=== PATIENT | female | born 1990 | race Caucasian/White ===

== ENCOUNTER 2018-05-17 08:48 | Emergency (ER) | payer OTHER ==
[~2018-05-17] VITALS: Ht 162.5 cm; Wt 125.6 kg
[2018-05-17 08:48] VITALS: BP 152/103
[~2018-05-17 08:48] MED LIST: AMOXICILLIN500 MG PO; AMOXIL500 M1 PO; AUGMENTIN 875875 MG PO; BACTRIM DS 8001 TA1 PO; BIRTH CONTROL1 EAC1 PO; BUSPAR5 MG PO; CATAPRES0.1 MG PO; CYCLOBENZAPRINE5 M3 PO; DOXYCYCLINE100 M3 PO; FLAGYL500 MG PO; HYDR25T PO; HYDROCODONE BIT1 T11 PO; HYDROXYZINE50 MG PO; IBU-8800 MG PO; K-TAB10 MEQ PO; KEFLEX500 MG PO; MACROBID100 M1 PO; MOTRIN800 MG PO; Motrin,Rufen800 MG PO; NKHM PO; NORVASC5 MG PO; PHENERGAN25 MG RC; POTASSIUM20 MEQ PO; PROZAC20 MG PO; ZITHROMAX Z PA250 MG PO; ZOFRAN ODT4 MG SL; ZOFRAN4 MG PO; ZOLOFT100 MG PO; Zofran4 MG PO
[2018-05-17] MEDS ORDERED: Motrin,Rufen800 MG PO (09:25)
[2018-05-17] MEDS ORDERED: AMOXICILLIN875 MG PO (09:25)
[2018-05-17] MEDS ORDERED: NORCO 5-325 TA1 EACH PO (09:26)
== END 2018-05-17 09:45 | disposition home or self-care (01) ==
LOC: ED 08:48
DX: K08.89 Other specified disorders of teeth and supporting structures (principal); Z88.1 Allergy status to other antibiotic agents; Z79.899 Other long term (current) drug therapy; Z90.49 Acquired absence of other specified parts of digestive tract

== ENCOUNTER 2018-06-10 17:03 | Inpatient (IN) | payer OTHER ==
[~2018-06-10] VITALS: Ht 162.5 cm; Wt 132.1 kg
--- NOTE | ~2018-06-10 | PR ---
[place], [place] PROGRESS NOTE [id number] UN[facility] #: [id number] ROOM: 427 DOCTOR: KRISTA FUENTES MD BIRTHDATE: [birth year] DOS: 06/12/2018 SUBJECTIVE: The patient is feeling better. She still has significant flank pains and nausea, but slightly better than yesterday. OBJECTIVE: VITAL SIGNS: Blood pressure 147/91, heart rate 87 beats per minute, breathing 20 times per minute, temperature 98 degrees Fahrenheit. GENERAL APPEARANCE: The patient is alert and oriented x 3, in no visible distress. Obesity. HEENT AND NECK: Exam within normal limits. CARDIOVASCULAR SYSTEM: Heart rate is regular in rate and rhythm. S1 and S2 normally audible. LUNGS: Clear to auscultation. ABDOMEN: Soft, nontender. No obvious organomegaly. Bowel sounds are present. EXTREMITIES: Without significant cyanosis or edema. MUSCULOSKELETAL: Bilateral flank tenderness. IMPRESSION: 1. The patient with pyelonephritis, bilateral flank pains and leukocytosis with nausea, all improving with treatment. The patient's urinary symptoms also improving and Infectious Disease specialists are following her. 2. HIV testing was negative. 3. Pyelonephritis with urine cultures growing Escherichia coli, sensitive to Rocephin. 4. Vomiting has resolved, but the patient still has significant nausea and being treated with IV Zofran. 5. Dehydration and hypovolemia treated with hydration with normal saline. Serum electrolytes are being monitored. KRISTA FUENTES MD CM:PNTRANS 1001 1 KRISTA FUENTES MD 06/13/18211 interface
--- NOTE | ~2018-06-10 | EKG ---
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
--- NOTE | ~2018-06-10 | WRIGHTHP ---
[place], [place] PATIENT HISTORY AND PHYSICAL EXAM NAME: ANNA ANDERSON [facility] #: [id number] UNIT #: [id number] ROOM: 427 DOCTOR: KRISTA FUENTES MD BIRTHDATE: [birth year] DOS: 06/10/2018 HISTORY OF PRESENT ILLNESS: The patient is a 27-year-old female who presented to the Emergency Department with complaints of bilateral lower back and flank pains with urinary urgency and dysuria. The patient was in severe pain and hyperventilating and crying in the ER with numbness in both hands. The patient was suspected to have sepsis and acute pyelonephritis. Urine and blood cultures were sent and she was admitted to a monitored bed for close monitoring. The patient has leukocytosis with white cell count of 17,000. After admission, the patient was given oral azithromycin, following which she started vomiting. The patient had significant nausea since yesterday. No dizziness or fainting episode. No chest pains or shortness of breath, no other GI or urinary symptoms. SYSTEMS REVIEW: RESPIRATORY: No increasing shortness of breath. GASTROINTESTINAL: The patient has nausea and vomiting. CARDIOVASCULAR SYSTEM: No chest pains or palpitations. FAMILY HISTORY: Noncontributory. HOME MEDICATIONS: Apparently, the patient is not taking any medications at home. PHYSICAL EXAMINATION: GENERAL: Alert and oriented x 3, in no visible distress. VITAL SIGNS: Blood pressure 127/76, heart rate of 73 beats per minute, breathing 20 times per minute, afebrile with the patient's heart rate at count of 208 beats per minute. Morbid obesity with BMI of 50. HEENT AND NECK: Extraocular movements are intact. Sclerae are anicteric. Oral mucosa is moist and clean. No obvious facial weakness. Neck is supple without any lymphadenopathy. No thyromegaly. No JVD. No carotid arterial bruits. LUNGS: Clear to auscultation. No wheezing. No rhonchi. CARDIOVASCULAR SYSTEM: Heart rate is regular in rate and rhythm. S1 and S2 normally audible. No significant murmur or any other abnormal cardiac sounds. ABDOMEN: Bilateral flank tenderness, otherwise abdominal exam is benign. Soft. No obvious organomegaly. Bowel sounds are present. No obvious herniation. EXTREMITIES: Without significant cyanosis or edema. Warm to touch. CENTRAL NERVOUS SYSTEM: Alert and oriented x 3. Cranial nerves II-XII are intact. Speech is normal. The patient is able to move all extremities. Normal muscle strength. Deep tendon reflexes are equal on both sides. Plantars were downgoing. IMPRESSION: 1. The patient with pyelonephritis, leukocytosis with white cell count of 17,000 with bilateral flank pains and nausea and vomiting is being treated with IV Rocephin and the patient was given azithromycin by Infectious Disease specialist. Blood and urine cultures are still pending. We are monitoring white cell counts, which are improving. 2. Severe nausea and vomiting, uncontrolled by IV Zofran and I am giving her IV Phenergan to control her symptoms. [place], [place] PATIENT HISTORY AND PHYSICAL EXAM [facility]: [id number] #: [id number] ROOM: [facility] DOCTOR: KRISTA FUENTES MD BIRTHDATE: [birth year] 3. Recurrent nausea, vomiting, and dehydration, hypovolemia to be treated with infusion of normal saline. 4. Significant flank pains, being treated with ibuprofen and Tylenol combination. The patient was given IV Toradol in the Emergency Department. KRISTA FUENTES MD CM:HISPHYS:PATIENT HISTORY AND PHYSICAL EXAMINATION 36 16 KRISTA FUENTES MD 06/11/181816 interface
--- NOTE | ~2018-06-10 | DS ---
[place], [place] DISCHARGE SUMMARY NAME: ANNA ANDERSON UNIT #: [id number] ROOM: 427 DOCTOR: KRISTA FUENTES MD BIRTHDATE: [birth year] DOS: 06/13/2018 DISCHARGE DIAGNOSES: 1. Pyelonephritis with urine cultures growing Escherichia coli. 2. Sepsis, vomiting, bilateral flank pains, dehydration, hypovolemia, tachycardia up to 122 beats per minute. Leukocytosis with white cell count of 17,000. HOSPITAL COURSE: The patient presented to the Emergency Department with complaints of bilateral flank pains, lower abdominal pains, urinary symptoms, hyperventilating, crying with numbness in both hands and lower back pains. The patient was found to have leukocytosis and later on urine cultures grew E. coli. The patient also had recurrent nausea, vomiting along with the abdominal pains. The patient was treated with ceftriaxone intravenously and she is improving. The patient was seen by Infectious Disease specialist and recommended ciprofloxacin as an outpatient for 1 week, bilateral significant lower back pain and flank pains from pyelonephritis, improved with treatment with Tylenol and ibuprofen combination. Recurrent nausea and vomiting, treated with Zofran as needed and has improved. The patient will be seen at the office by me on Sunday and she is being discharged to home on ciprofloxacin, ibuprofen and Tylenol as needed along with Zofran for nausea and vomiting. LABORATORY DATA: Urine culture growing E. coli as mentioned above sensitive to ciprofloxacin. Blood cultures were negative. Normal serum electrolytes. White cell count of 17,000 and has returned to normal. It is 9800 today. DISCHARGE MANAGEMENT: Protonix 40 mg twice a day for a month; ibuprofen 800 mg 3 times a day for 10 days as needed; Zofran 8 mg every 6 hours as needed sublingual for nausea, vomiting; ciprofloxacin 500 mg twice a day for a week, then to be stopped. [place], [place] DISCHARGE SUMMARY NAME: ANNA ANDERSON UNIT #: [id number] ROOM: 427 DOCTOR: KRISTA FUENTES MD BIRTHDATE: [birth year] KRISTA FUENTES MD CM:MARIAH 1946 2 KRISTA FUENTES MD 06/14/18702 interface
[~2018-06-10 17:03] MED LIST changes: +AMOXICILLIN875 MG PO; +NORCO 5-325 TA1 EACH PO
[2018-06-10 17:05] VITALS: BP 156/96
[2018-06-10 17:28] LABS: BASO % 0.2 % (0.0-1.0); EOS # 0.2 10*3/uL (0.0-0.4); EOS % 0.9 % (1.0-4.0); HEMATOCRIT 38.9 % (37.0-47.0); LYMPH # 2.8 10*3/uL (1.3-4.4); LYMPH % 16.7 % (27.0-41.0); MEAN CELL VOLUME 81.2 fl (81.0-99.0); MEAN CORPUSCULAR HGB 27.1 pg (27.0-31.0); MEAN CORPUSCULAR HGB CONC 33.4 g/dl (33.0-37.0); MEAN PLATELET VOLUME 9.8 fl (9.6-12.3); MONO # 0.9 10*3/uL (0.1-1.0); NEUT # 13.1 10*3/uL (2.3-7.9); NEUT % 76.8 % (47.0-73.0); PLATELET COUNT AUTOMATED 390 10*3/uL (130-400); RED BLOOD COUNT 4.79 10*6/uL (4.10-5.10); RED CELL DISTRI WIDTH 13.6 % (0-14.5)
--- NOTE | 2018-06-10 17:46 | NUR ---
PAIN NEARLY COMPLETELY RELIEVED BY TORADOL INJECTION.
[2018-06-10 17:48] LABS: BILIRUBIN NEGATIVE (NEGATIVE); BLOOD 3+ (NEGATIVE); CLARITY CLOUDY (CLEAR); COLOR YELLOW (YELLOW); GLUCOSE NEGATIVE (NEGATIVE); KETONE NEGATIVE (NEGATIVE); LEUKO ESTERASE 3+ (NEGATIVE); NITRITE POSITIVE (NEGATIVE); SPECIFIC GRAVITY <= 1.005 (1.005-1.030); UROBILINOGEN 0.2 E.U./dl (0.2-1.0)
[2018-06-10 17:51] LABS: ALBUMIN 3.4 gm/dl (3.1-4.5); ALKALINE PHOSPHATASE 81 U/L (45-117); BUN 11 mg/dl (7-24); CHLORIDE 107 mmol/L (98-107); CREATININE 0.74 mg/dL (0.55-1.02); LIPASE 71 U/L (73-393); POTASSIUM 3.9 mmol/L (3.5-5.1); SGOT/AST 16 IU/L (3-35); SGPT/ALT 28 U/L (12-78); SODIUM 138 mmol/L (136-145); TOTAL PROTEIN 7.9 gm/dL (6.4-8.2)
[2018-06-10 18:02] LABS: WBC TNTC wbc/hpf (0-5)
[2018-06-10 18:03] LABS: BACTERIA 3+
[2018-06-10 18:55] VITALS: BP 131/65
--- NOTE | 2018-06-10 18:55 | NUR ---
PAIN RESOLVED. ALL TESTS RETURNED. LAST OF SALINE INFUSING. FAMILY AT BEDSIDE.
--- NOTE | 2018-06-10 19:14 | NUR ---
CONT PATIENT CARE. PATIENT IS RESTING IN BED WITH NO DISTRESS. PATIENT STATES PAIN FEELS MUCH BETTER THEN BEFORE. VITALS STILL WITHIN NORMAL LIMITS.
[2018-06-10 19:15] VITALS: BP 128/69
[2018-06-10 20:05] VITALS: BP 132/84
--- NOTE | 2018-06-10 20:05 | NUR ---
A 27, admitted to , under the services of Dr. ALFREDO BUSTOS,KRISTA Burton with a diagnosis of UTI,SEPSIS. Chief complaint is KIDNEY STONES. Patient arrived via stretcher from ER. Monitor applied. Initial assessment completed. Vital signs taken and recorded. DR. ALFREDO BUSTOS,KRISTA Burton notified of admission to the unit. Orders received. See assessment for past medical history, medications and allergies. Patient and/or family oriented to unit. [facility] visitation policy reviewed. Clothing/patient valuable form completed. KEAGAN LORENZANA
--- NOTE | 2018-06-10 20:45 | NUR ---
DR FUENTES CALLED FOR ADMISSION ORDERS. NEW ORDERS RECEIVED- SEE ORDERS.
--- NOTE | 2018-06-10 22:00 | NUR ---
PATIENT REQUESTING PAIN MEDICATION FOR BILATER FLANK AND LOWER ABDOMINAL PAIN RATED 8/10 ON 0/10 SCALE. DIALUDID ADMINISTERED PRESCRIBED. WILL MONITOR FOR EFFECTIVENESS.
--- NOTE | 2018-06-10 23:00 | NUR ---
PATIENT STATES THAT PAIN IS 3/10 AFTER ADMINISTRATION OF DILAUDID. CONTINUE TO MONITOR.
--- NOTE | 2018-06-11 02:35 | NUR ---
24 HR chart check completed.
--- NOTE | 2018-06-11 03:10 | NUR ---
PATIENT RESTING WITH EYES CLOSED AT THIS TIME. RESPIRATIONS EASY. NO DISTRESS NOTED. CALL HATFIELD WITHIN REACH. MONITOR FOR EFFECTIVENESS.
--- NOTE | 2018-06-11 03:12 | NUR ---
PATIENT RESTING WITH EYES CLOSED. RESPIRATIONS EASY. NO DISTRESS NOTED AT THIS TIME. CALL H[facility]FIELD WITHIN REACH. CONTINUE TO MONITOR.
--- NOTE | 2018-06-11 04:25 | NUR ---
PATIENT REQUESTING MEDICATION FOR NAUSEA AND PAIN- BILATERAL FLANK AND LOWER ABDOMINAL. ZOFRAN AND DIALUDID ADMINISTERED PRESCRIBED. WILL MONITOR FOR EFFECTIVENESS.
[2018-06-11 06:28] LABS: BASO % 0.3 % (0.0-1.0); EOS # 0.2 10*3/uL (0.0-0.4); EOS % 1.4 % (1.0-4.0); HEMATOCRIT 37.6 % (37.0-47.0); LYMPH # 2.6 10*3/uL (1.3-4.4); LYMPH % 23.5 % (27.0-41.0); MEAN CORPUSCULAR HGB 27.1 pg (27.0-31.0); MEAN CORPUSCULAR HGB CONC 31.9 g/dl (33.0-37.0); MEAN PLATELET VOLUME 10.4 fl (9.6-12.3); MONO # 0.7 10*3/uL (0.1-1.0); MONO % 5.9 % (3.0-9.0); NEUT # 7.6 10*3/uL (2.3-7.9); NEUT % 68.5 % (47.0-73.0); PLATELET COUNT AUTOMATED 347 10*3/uL (130-400); RED BLOOD COUNT 4.43 10*6/uL (4.10-5.10); RED CELL DISTRI WIDTH 13.7 % (0-14.5); WHITE BLOOD COUNT 11.1 10*3/uL (4.8-10.8)
--- NOTE | 2018-06-11 06:35 | NUR ---
[facility] CALLED TO ANSWERING SERVICE.
[2018-06-11 06:36] LABS: BUN 9 mg/dl (7-24); CHLORIDE 108 mmol/L (98-107); CREATININE 0.57 mg/dL (0.55-1.02); POTASSIUM 3.8 mmol/L (3.5-5.1); SODIUM 140 mmol/L (136-145)
[2018-06-11 06:38] LABS: MEAN CELL VOLUME 84.9 fl (81.0-99.0)
[2018-06-11 08:00] VITALS: BP 146/74
--- NOTE | 2018-06-11 09:00 | NUR ---
Joint Creaser in to talk to patient. Patient states lives at home with her 3 children and family checking in on her. There are 21 steps in the home. Physician: Dr. Gonzales Rhodes [facility]acy: [facility] Home health services: none Patient's level of ADLs: INDEPENDENT Patient has working utilities: yes DME: none Follow-up physician's appointment after d/c: she prefers to make her own follow up appt after discharge Does patient want to access PORTAL?: no Discharge plan discussed with patient. She lives at home with her 3 children and her family checking in on her. She is independent in her ADLs and ambulation. Discussed home health care services and she denies any home needs at this time. When medically stable she will be discharged to home. DAGMAR GARCIA
--- NOTE | 2018-06-11 11:47 | NUR ---
MEDICATED PT PER PRN ORDER WITH DILAUDID FOR C/O BILATERAL LOWER BACK AND FLANK PAIN THAT RATES 8/10 ON PAIN SCALE.
[2018-06-11 12:00] VITALS: BP 145/92
--- NOTE | 2018-06-11 12:20 | NUR ---
PT STATES BETTER RELIEF OF PAIN WITH EARLIER DILAUDID.
--- NOTE | 2018-06-11 15:19 | NUR ---
PO ZITHROMAX GIVEN PER ORDER. CONSENT FOR HIV TESTING SIGNED BY PT.
[2018-06-11 16:00] VITALS: BP 127/76
--- NOTE | 2018-06-11 16:08 | NUR ---
MEDICATED PT PER PRN ORDER WITH ZOFRAN FOR C/O NAUSEA.
--- NOTE | 2018-06-11 16:58 | NUR ---
PT VOMITING AFTER IV ZOFRAN. WILL NOTIFY DR FUENTES.
--- NOTE | 2018-06-11 18:07 | NUR ---
MEDICATED PT PER PRN ORDER WITH DILAUDID FOR C/O LOWER BACK PAIN THAT RATES 10/10 ON PAIN SCALE AND MEDICATED PT PER 1X ORDER WITH PHENERGAN FOR PT'S CONTINUED NAUSEA EVEN AFTER IV ZOFRAN. DR FUENTES IN TO SEE PT EARLIER AND ORDERED THE PHENERGAN.
--- NOTE | 2018-06-11 19:00 | NUR ---
PT STATES RELIEF OF PAIN AND NUSEA WITH EARLIER MEDS.
[2018-06-11 20:00] VITALS: BP 111/59
--- NOTE | 2018-06-11 20:40 | NUR ---
24 HR CHART CHECK COMPLETE.
--- NOTE | 2018-06-11 21:40 | NUR ---
PT ASLEEP. REPORT RECIEVED FROM SARAH LUNA. NO S/S OF DISTRESS NOTED AT THIS TIME. WILL CONTINUE TO MONITOR.
[2018-06-12] VITALS: BP 143/101
[2018-06-12 06:13] LABS: HEPATITIS B SURFACE AG Negative (Negative); HEPATITIS C VIRUS ANTIBODY <0.1 s/co (0.0-0.9)
[2018-06-12 06:24] LABS: BASO % 0.3 % (0.0-1.0); EOS # 0.2 10*3/uL (0.0-0.4); EOS % 1.8 % (1.0-4.0); HEMATOCRIT 38.3 % (37.0-47.0); HEMOGLOBIN 11.8 g/dl (12.0-16.0); LYMPH # 2.6 10*3/uL (1.3-4.4); LYMPH % 27.7 % (27.0-41.0); MEAN CELL VOLUME 85.3 fl (81.0-99.0); MEAN CORPUSCULAR HGB 26.3 pg (27.0-31.0); MEAN CORPUSCULAR HGB CONC 30.8 g/dl (33.0-37.0); MEAN PLATELET VOLUME 10.1 fl (9.6-12.3); MONO # 0.5 10*3/uL (0.1-1.0); MONO % 5.2 % (3.0-9.0); NEUT # 6.1 10*3/uL (2.3-7.9); NEUT % 64.7 % (47.0-73.0); PLATELET COUNT AUTOMATED 334 10*3/uL (130-400); RED BLOOD COUNT 4.49 10*6/uL (4.10-5.10); RED CELL DISTRI WIDTH 13.6 % (0-14.5); WHITE BLOOD COUNT 9.5 10*3/uL (4.8-10.8)
[2018-06-12 06:37] LABS: BUN 8 mg/dl (7-24); CHLORIDE 107 mmol/L (98-107); CREATININE 0.61 mg/dL (0.55-1.02); POTASSIUM 3.9 mmol/L (3.5-5.1); SODIUM 140 mmol/L (136-145)
--- NOTE | 2018-06-12 07:54 | NUR ---
MEDICATED WITH IV DILAUDID ORDERED PER PT REQUEST FOR C/O BILAT FLANK PAIN RATED 8/10. ZOFRAN GIVEN AT 0752 FOR NAUSEA PREVENTION D/T DECREASED APPETITE.
[2018-06-12 08:00] VITALS: BP 147/91
--- NOTE | 2018-06-12 08:20 | NUR ---
24 HR chart check completed.
--- NOTE | 2018-06-12 09:00 | NUR ---
Gaming Manager in to see patient. No new needs or request at this time. She denies any home needs. When medically stable she will be discharged to home.
--- NOTE | 2018-06-12 11:00 | NUR ---
MEDICATIONS EFFECTIVE.
[2018-06-12 12:00] VITALS: BP 150/96
--- NOTE | 2018-06-12 15:42 | NUR ---
MEDICATED WITH IV ZOFRAN ORDERED PER PT REQUEST FOR C/O NAUSEA. AT 1544 MEDICATED WITH IV DILAUDID ORDERED PER PT REQUEST FOR C/O PAIN TO BILAT FLANKS RATED 10/10.
[2018-06-12 16:00] VITALS: BP 141/79
--- NOTE | 2018-06-12 17:00 | NUR ---
MEDICATIONS EFFECTIVE FOR NAUSEA/PAIN.
[2018-06-12 20:00] VITALS: BP 140/78
--- NOTE | 2018-06-12 23:22 | NUR ---
PATIENT MEDICATED PER REQUEST WITH PRN DILUADID. PATIENT C/O BACK PAIN. RATES 09/16. WILL CHECK EFFECTIVENESS.
[2018-06-13] VITALS: BP 130/79
[2018-06-13 06:11] LABS: BASO % 0.1 % (0.0-1.0); EOS # 0.2 10*3/uL (0.0-0.4); EOS % 2.1 % (1.0-4.0); HEMATOCRIT 35.5 % (37.0-47.0); HEMOGLOBIN 11.6 g/dl (12.0-16.0); LYMPH # 2.2 10*3/uL (1.3-4.4); MEAN CELL VOLUME 83.5 fl (81.0-99.0); MEAN CORPUSCULAR HGB 27.3 pg (27.0-31.0); MEAN CORPUSCULAR HGB CONC 32.7 g/dl (33.0-37.0); MEAN PLATELET VOLUME 10.1 fl (9.6-12.3); MONO # 0.5 10*3/uL (0.1-1.0); MONO % 5.5 % (3.0-9.0); NEUT # 6.9 10*3/uL (2.3-7.9); PLATELET COUNT AUTOMATED 358 10*3/uL (130-400); RED BLOOD COUNT 4.25 10*6/uL (4.10-5.10); RED CELL DISTRI WIDTH 13.6 % (0-14.5); WHITE BLOOD COUNT 9.8 10*3/uL (4.8-10.8)
[2018-06-13 06:38] LABS: BUN 10 mg/dl (7-24); CHLORIDE 108 mmol/L (98-107); CREATININE 0.58 mg/dL (0.55-1.02); POTASSIUM 3.9 mmol/L (3.5-5.1); SODIUM 140 mmol/L (136-145)
--- NOTE | 2018-06-13 07:30 | NUR ---
Patient resting quietly with no c/o discomfort. Respirations easy and regular. Vital signs stable. No overt distress. VIGNESH PINEDA 24 HR chart check completed.
--- NOTE | 2018-06-13 10:27 | NUR ---
MEDICATED WITH IV DILAUDID ORDERED PER PT REQUEST FOR C/O BILAT FLANK PAIN RATED 7/10.
--- NOTE | 2018-06-13 11:48 | NUR ---
MEDICATION EFFECTIVE FOR PAIN. MEDICATED WITH IV ZOFRAN ORDERED PER PT REQUEST FOR C/O NAUSEA. IVF BOLUS COMPLETE.
[2018-06-13 12:00] VITALS: BP 137/83
[2018-06-13 16:00] VITALS: BP 141/80
[2018-06-13] MEDS ORDERED: PROTONIX40 M1 PO (19:31)
[2018-06-13] MEDS ORDERED: IBU800 M1 PO (19:31)
[2018-06-13] MEDS ORDERED: ONDANSETRON4 MG/2 M3 PO (19:31)
[2018-06-13] MEDS ORDERED: CIPROFLOXACIN500 M4 PO (19:31)
--- NOTE | 2018-06-13 20:00 | NUR ---
PT LEAVING AMBULATORY IN CARE OF MOTHER.
== END 2018-06-13 20:00 | disposition home or self-care (01) | DRG 872 ==
LOC: ED 17:03 → 4E 19:20 → EDHOLD 19:20 → 4E 19:52
PROVIDERS: Internal Medicine; Nurse Practitioner Family; ADMIT Internal Medicine
DX: A41.9 Sepsis, unspecified organism (principal); N10 Acute pyelonephritis; Z68.43 Body mass index [BMI] 50.0-59.9, adult; E86.1 Hypovolemia; E86.0 Dehydration; B96.20 Unspecified Escherichia coli [E. coli] as the cause of diseases classified elsewhere; E66.01 Morbid (severe) obesity due to excess calories; M54.5 Low back pain; Z91.81 History of falling; Z87.440 Personal history of urinary (tract) infections; Z90.49 Acquired absence of other specified parts of digestive tract; Z98.891 History of uterine scar from previous surgery; Z82.49 Family history of ischemic heart disease and other diseases of the circulatory system; Z83.3 Family history of diabetes mellitus; Z88.1 Allergy status to other antibiotic agents; Z79.899 Other long term (current) drug therapy

== ENCOUNTER 2018-08-24 06:00 | Emergency (ER) | payer OTHER ==
[~2018-08-24] VITALS: Ht 162.5 cm; Wt 126.6 kg
[~2018-08-24 06:00] MED LIST changes: +CIPROFLOXACIN500 M4 PO; +IBU800 M1 PO; +ONDANSETRON4 MG/2 M3 PO; +PROTONIX40 M1 PO
[2018-08-24 06:05] VITALS: BP 160/105
[2018-08-24 06:57] LABS: BILIRUBIN NEGATIVE (NEGATIVE); BLOOD NEGATIVE (NEGATIVE); CLARITY SL CLOUDY (CLEAR); COLOR YELLOW (YELLOW); GLUCOSE NEGATIVE (NEGATIVE); KETONE NEGATIVE (NEGATIVE); LEUKO ESTERASE NEGATIVE (NEGATIVE); NITRITE NEGATIVE (NEGATIVE); SPECIFIC GRAVITY >= 1.030 (1.005-1.030); UROBILINOGEN 0.2 E.U./dl (0.2-1.0)
[2018-08-24 06:57] LABS: BASO % 0.3 % (0.0-1.0); EOS # 0.2 10*3/uL (0.0-0.4); EOS % 1.3 % (1.0-4.0); HEMATOCRIT 37.7 % (37.0-47.0); LYMPH # 2.5 10*3/uL (1.3-4.4); LYMPH % 20.7 % (27.0-41.0); MEAN CELL VOLUME 83.2 fl (81.0-99.0); MEAN CORPUSCULAR HGB 26.5 pg (27.0-31.0); MEAN CORPUSCULAR HGB CONC 31.8 g/dl (33.0-37.0); MEAN PLATELET VOLUME 10.1 fl (9.6-12.3); MONO # 0.6 10*3/uL (0.1-1.0); MONO % 4.6 % (3.0-9.0); NEUT # 8.7 10*3/uL (2.3-7.9); NEUT % 72.7 % (47.0-73.0); PLATELET COUNT AUTOMATED 346 10*3/uL (130-400); RED BLOOD COUNT 4.53 10*6/uL (4.10-5.10); RED CELL DISTRI WIDTH 13.7 % (0-14.5); WHITE BLOOD COUNT 11.9 10*3/uL (4.8-10.8)
[2018-08-24 07:04] LABS: RBC 0-2 rbc/hpf (0-2)
[2018-08-24 07:12] LABS: ALBUMIN 3.4 gm/dl (3.1-4.5); ALKALINE PHOSPHATASE 78 U/L (45-117); BUN 13 mg/dl (7-24); CHLORIDE 105 mmol/L (98-107); CREATININE 0.93 mg/dL (0.55-1.02); POTASSIUM 3.7 mmol/L (3.5-5.1); SGOT/AST 15 IU/L (3-35); SGPT/ALT 30 U/L (12-78); SODIUM 140 mmol/L (136-145); TOTAL PROTEIN 7.5 gm/dL (6.4-8.2)
[2018-08-24] MEDS ORDERED: Motrin,Rufen800 MG PO (08:50)
[2018-08-24] MEDS ORDERED: CYCLOBENZAPRINE10 MG PO (08:50)
== END 2018-08-24 08:55 | disposition home or self-care (01) ==
LOC: ED 06:00
PROVIDERS: Emergency Medicine
DX: M54.9 Dorsalgia, unspecified (principal); R10.9 Unspecified abdominal pain; F17.210 Nicotine dependence, cigarettes, uncomplicated; Z88.1 Allergy status to other antibiotic agents; Z90.49 Acquired absence of other specified parts of digestive tract

== ENCOUNTER 2018-11-12 13:33 | Emergency (ER) | payer OTHER ==
[~2018-11-12] VITALS: Ht 162.5 cm; Wt 123.4 kg
[~2018-11-12 13:33] MED LIST changes: +CYCLOBENZAPRINE10 MG PO
[2018-11-12 13:36] VITALS: BP 162/103
[2018-11-12 14:00] LABS: BILIRUBIN 1+ (NEGATIVE); BLOOD NEGATIVE (NEGATIVE); CLARITY SL CLOUDY (CLEAR); COLOR YELLOW (YELLOW); GLUCOSE NEGATIVE (NEGATIVE); KETONE 2+ (NEGATIVE); LEUKO ESTERASE TRACE (NEGATIVE); NITRITE NEGATIVE (NEGATIVE); PH 6.5 (5.0-9.0); SPECIFIC GRAVITY >= 1.030 (1.005-1.030); UROBILINOGEN 0.2 E.U./dl (0.2-1.0)
[2018-11-12 14:22] LABS: BACTERIA 1+; EPITHELIAL CELLS 51-100
[2018-11-12] MEDS ORDERED: REGLAN10 M1 PO (17:08)
== END 2018-11-12 17:14 | disposition home or self-care (01) ==
LOC: ED 13:33
PROVIDERS: Nurse Practitioner Family
DX: O21.9 Vomiting of pregnancy, unspecified (principal); O26.891 Other specified pregnancy related conditions, first trimester; O99.331 Smoking (tobacco) complicating pregnancy, first trimester; R51 Headache; F17.210 Nicotine dependence, cigarettes, uncomplicated; Z88.1 Allergy status to other antibiotic agents; Z3A.08 8 weeks gestation of pregnancy

== ENCOUNTER → 2018-11-18 | Outpatient (CLI) | payer OTHER ==
[~2018-11-18] MED LIST changes: +REGLAN10 M1 PO
== END | disposition home or self-care (01) ==
LOC: US 14:00
DX: Z34.81 Encounter for supervision of other normal pregnancy, first trimester (principal); Z3A.01 Less than 8 weeks gestation of pregnancy

== ENCOUNTER 2018-12-08 07:31 | Emergency (ER) | payer OTHER ==
[~2018-12-08] VITALS: Ht 162.5 cm; Wt 122.5 kg
[2018-12-08 07:32] VITALS: BP 144/105
== END 2018-12-08 08:53 | disposition home or self-care (01) ==
LOC: ED 07:31
DX: O9A.211 Injury, poisoning and certain other consequences of external causes complicating pregnancy, first trimester (principal); S39.92XA Unspecified injury of lower back, initial encounter; S39.91XA Unspecified injury of abdomen, initial encounter; F17.210 Nicotine dependence, cigarettes, uncomplicated; Z3A.13 13 weeks gestation of pregnancy; Z88.1 Allergy status to other antibiotic agents; Z90.49 Acquired absence of other specified parts of digestive tract; W18.39XA Other fall on same level, initial encounter; Y93.89 Activity, other specified; Y92.89 Other specified places as the place of occurrence of the external cause; Y99.0 Civilian activity done for income or pay

== ENCOUNTER → 2020-02-19 | Outpatient (CLI) | payer OTHER ==
[2020-02-19 11:58] LABS: MEAN CELL VOLUME 81.7 fl (81.0-99.0); MEAN CORPUSCULAR HGB 25.9 pg (27.0-31.0); MEAN CORPUSCULAR HGB CONC 31.7 g/dl (33.0-37.0); MEAN PLATELET VOLUME 10.3 fl (9.6-12.3); RED BLOOD COUNT 5.02 10*6/uL (4.10-5.10); RED CELL DISTRI WIDTH 13.5 % (0-14.5); WHITE BLOOD COUNT 10.5 10*3/uL (4.8-10.8)
[2020-02-19 12:29] LABS: ALBUMIN 3.4 gm/dl (3.1-4.5); BUN 8 mg/dl (7-24); CHLORIDE 105 mmol/L (98-107); CHOLESTEROL 185 mg/dL (<200); CREATININE 0.63 mg/dL (0.55-1.02); HDL CHOLESTEROL 46 mg/dl (40-60); LDL CHOLESTEROL 111 mg/dL (9-159); SGOT/AST 46 IU/L (3-35); SGPT/ALT 51 U/L (12-78); SODIUM 138 mmol/L (136-145); TOTAL PROTEIN 8.1 gm/dL (6.4-8.2); TRIGLYCERIDES 142 mg/dl (<150); VLDL CHOLESTEROL 28 mg/dL (6-40)
[2020-02-19 12:35] LABS: ALKALINE PHOSPHATASE 80 U/L (45-117); FREE T4 0.93 ng/dl (0.76-1.46); THYROID STIM HORMONE (HS) 0.744 uIU/ml (0.358-4.75)
[2020-02-19 12:57] LABS: VITAMIN D, 25-HYDROXY 19.7 ng/mL (30-100)
== END | disposition home or self-care (01) ==
LOC: LAB 11:20
PROVIDERS: ATTEND Family Medicine
DX: E11.9 Type 2 diabetes mellitus without complications (principal); R53.83 Other fatigue; E66.01 Morbid (severe) obesity due to excess calories; R63.1 Polydipsia

== ENCOUNTER → 2020-10-20 | Outpatient (CLI) | payer OTHER | END | disposition home or self-care (01) | LOC: RAD 15:27 | PROVIDERS: ATTEND Internal Medicine | DX: Z02.1 Encounter for pre-employment examination (principal) ==

== ENCOUNTER 2021-05-16 02:07 | Emergency (ER) | payer OTHER ==
[~2021-05-16] VITALS: Ht 162.5 cm; Wt 96.2 kg
[2021-05-16] MEDS ORDERED: TRULICITY0.75 MG/0. SC (02:11)
[2021-05-16 02:14] VITALS: BP 150/109
[2021-05-16] MEDS ORDERED: MEDROL DOSEPAK4 MG PO (05:04)
[2021-05-16] MEDS ORDERED: DIPHENHYDRAMINE50 M1 PO (05:04)
== END 2021-05-16 05:12 | disposition home or self-care (01) ==
LOC: ED 02:07
DX: L50.9 Urticaria, unspecified (principal); Z20.822 Contact with and (suspected) exposure to COVID-19; F17.210 Nicotine dependence, cigarettes, uncomplicated; Z88.1 Allergy status to other antibiotic agents; Z90.49 Acquired absence of other specified parts of digestive tract; Z98.890 Other specified postprocedural states

== ENCOUNTER → 2021-07-22 | Outpatient (CLI) | payer OTHER ==
[~2021-07-22] MED LIST changes: +DIPHENHYDRAMINE50 M1 PO; +MEDROL DOSEPAK4 MG PO; +TRULICITY0.75 MG/0. SC
[2021-07-22 12:49] LABS: BASO % 0.4 % (0.0-1.0); EOS # 0.2 10*3/uL (0.0-0.4); EOS % 2.5 % (1.0-4.0); HEMATOCRIT 44.3 % (37.0-47.0); LYMPH # 2.1 10*3/uL (1.3-4.4); MEAN CELL VOLUME 82.8 fl (81.0-99.0); MEAN CORPUSCULAR HGB 27.5 pg (27.0-31.0); MEAN CORPUSCULAR HGB CONC 33.2 g/dl (33.0-37.0); MEAN PLATELET VOLUME 9.7 fl (9.6-12.3); MONO # 0.4 10*3/uL (0.1-1.0); MONO % 4.6 % (3.0-9.0); NEUT # 6.6 10*3/uL (2.3-7.9); NEUT % 70.2 % (47.0-73.0); PLATELET COUNT AUTOMATED 341 10*3/uL (130-400); RED BLOOD COUNT 5.35 10*6/uL (4.10-5.10); RED CELL DISTRI WIDTH 13.1 % (0-14.5); WHITE BLOOD COUNT 9.3 10*3/uL (4.8-10.8)
[2021-07-22 13:06] LABS: ALKALINE PHOSPHATASE 88 U/L (45-117); BUN 9 mg/dl (7-24); CHLORIDE 104 mmol/L (98-107); CHOLESTEROL 172 mg/dL (<200); LDL CHOLESTEROL 104 mg/dL (9-159); SGOT/AST 10 IU/L (3-35); SGPT/ALT 25 U/L (12-78); SODIUM 136 mmol/L (136-145); TOTAL PROTEIN 7.9 gm/dL (6.4-8.2); TRIGLYCERIDES 126 mg/dl (<150)
== END | disposition home or self-care (01) ==
LOC: RESCLI 01:14
PROVIDERS: Internal Medicine; ATTEND Internal Medicine
DX: E11.9 Type 2 diabetes mellitus without complications (principal); F31.9 Bipolar disorder, unspecified; I10 Essential (primary) hypertension; R06.83 Snoring; R53.83 Other fatigue; Z79.899 Other long term (current) drug therapy; Z88.8 Allergy status to other drugs, medicaments and biological substances; Z87.891 Personal history of nicotine dependence; Z72.89 Other problems related to lifestyle; Z88.1 Allergy status to other antibiotic agents

== ENCOUNTER → 2021-08-19 | Outpatient (CLI) | payer OTHER | END | disposition home or self-care (01) | LOC: RESCLI 01:29 | PROVIDERS: ATTEND Internal Medicine | DX: E11.9 Type 2 diabetes mellitus without complications (principal); E55.9 Vitamin D deficiency, unspecified; R53.83 Other fatigue; G47.00 Insomnia, unspecified; F31.9 Bipolar disorder, unspecified; Z79.899 Other long term (current) drug therapy; Z88.8 Allergy status to other drugs, medicaments and biological substances ==

== ENCOUNTER → 2021-12-08 | Outpatient (CLI) | payer OTHER | END | disposition home or self-care (01) | LOC: RESCLI 00:49 | PROVIDERS: ATTEND Internal Medicine | DX: E11.9 Type 2 diabetes mellitus without complications (principal); G47.00 Insomnia, unspecified; E55.9 Vitamin D deficiency, unspecified; I10 Essential (primary) hypertension; F31.9 Bipolar disorder, unspecified; B00.89 Other herpesviral infection; B02.9 Zoster without complications; Z79.899 Other long term (current) drug therapy; Z88.8 Allergy status to other drugs, medicaments and biological substances; Z90.49 Acquired absence of other specified parts of digestive tract; Z79.01 Long term (current) use of anticoagulants ==

== ENCOUNTER → 2021-12-16 | Outpatient (CLI) | payer OTHER ==
[2021-12-16 08:23] LABS: BASO % 0.3 % (0.0-1.0); EOS # 0.2 10*3/uL (0.0-0.4); EOS % 1.8 % (1.0-4.0); HEMATOCRIT 41.6 % (37.0-47.0); LYMPH # 2.3 10*3/uL (1.3-4.4); MEAN CORPUSCULAR HGB 28.1 pg (27.0-31.0); MEAN CORPUSCULAR HGB CONC 33.4 g/dl (33.0-37.0); MEAN PLATELET VOLUME 9.9 fl (9.6-12.3); MONO # 0.5 10*3/uL (0.1-1.0); MONO % 5.8 % (3.0-9.0); NEUT # 5.9 10*3/uL (2.3-7.9); NEUT % 65.9 % (47.0-73.0); PLATELET COUNT AUTOMATED 371 10*3/uL (130-400); RED BLOOD COUNT 4.95 10*6/uL (4.10-5.10); RED CELL DISTRI WIDTH 12.4 % (0-14.5)
[2021-12-16 08:48] LABS: ALKALINE PHOSPHATASE 66 U/L (45-117); BUN 12 mg/dl (7-24); CHLORIDE 105 mmol/L (98-107); CHOLESTEROL 182 mg/dL (<200); CREATININE 0.69 mg/dL (0.55-1.02); LDL CHOLESTEROL 96 mg/dL (9-159); POTASSIUM 3.9 mmol/L (3.5-5.1); SGOT/AST 12 IU/L (3-35); SGPT/ALT 24 U/L (12-78); SODIUM 137 mmol/L (136-145); TOTAL PROTEIN 7.8 gm/dL (6.4-8.2); TRIGLYCERIDES 229 mg/dl (<150)
== END | disposition home or self-care (01) ==
LOC: LAB 07:52
PROVIDERS: Internal Medicine; ATTEND Student in an Organized Health Care Education/Training Program
DX: E11.9 Type 2 diabetes mellitus without complications (principal); E55.9 Vitamin D deficiency, unspecified

== ENCOUNTER → 2021-12-20 | Outpatient (CLI) | payer OTHER | END | disposition home or self-care (01) | LOC: LAB 14:47 | PROVIDERS: ATTEND Internal Medicine | DX: J03.90 Acute tonsillitis, unspecified (principal) ==

== ENCOUNTER → 2022-02-24 | Outpatient (CLI) | payer OTHER ==
[2022-02-24 12:11] LABS: BILIRUBIN Negative (Negative); BLOOD Negative (Negative); CLARITY Clear (Clear); COLOR Yellow (Yellow); GLUCOSE 3+ (Negative); KETONE 3+ (Negative); LEUKO ESTERASE Negative (Negative); NITRITE Negative (Negative); PH 5.5 (4.5-8.0); SPECIFIC GRAVITY >= 1.030 (1.001-1.030); UROBILINOGEN 0.2 E.U./dl (0.0-1.0)
[2022-02-24 12:28] LABS: BACTERIA 1+
== END ==
LOC: LAB 11:52
PROVIDERS: ATTEND Internal Medicine
DX: R35.0 Frequency of micturition (principal)

== ENCOUNTER → 2022-06-13 | Outpatient (CLI) | payer OTHER | END | disposition home or self-care (01) | LOC: RESCLI 14:54 | PROVIDERS: ATTEND Internal Medicine | DX: Z00.00 Encounter for general adult medical examination without abnormal findings (principal); I10 Essential (primary) hypertension; E11.9 Type 2 diabetes mellitus without complications; F32.9 Major depressive disorder, single episode, unspecified; F41.9 Anxiety disorder, unspecified; F17.210 Nicotine dependence, cigarettes, uncomplicated; F10.90 Alcohol use, unspecified, uncomplicated; E78.5 Hyperlipidemia, unspecified; F90.9 Attention-deficit hyperactivity disorder, unspecified type; Z88.8 Allergy status to other drugs, medicaments and biological substances; Z98.890 Other specified postprocedural states; Z82.49 Family history of ischemic heart disease and other diseases of the circulatory system; Z90.49 Acquired absence of other specified parts of digestive tract; Z79.84 Long term (current) use of oral hypoglycemic drugs; Z79.899 Other long term (current) drug therapy ==

== ENCOUNTER → 2022-06-14 | Outpatient (CLI) | payer OTHER | END | disposition home or self-care (01) | LOC: LAB 10:45 | PROVIDERS: ATTEND Internal Medicine | DX: Z00.00 Encounter for general adult medical examination without abnormal findings (principal); E11.9 Type 2 diabetes mellitus without complications ==

== ENCOUNTER → 2022-08-01 | Outpatient (CLI) | payer OTHER | END | disposition home or self-care (01) | LOC: RESCLI 14:54 | PROVIDERS: ATTEND Internal Medicine | DX: E11.9 Type 2 diabetes mellitus without complications (principal); F41.9 Anxiety disorder, unspecified; F32.9 Major depressive disorder, single episode, unspecified; E78.5 Hyperlipidemia, unspecified; I10 Essential (primary) hypertension; B00.89 Other herpesviral infection; F17.210 Nicotine dependence, cigarettes, uncomplicated; F90.9 Attention-deficit hyperactivity disorder, unspecified type; Z88.8 Allergy status to other drugs, medicaments and biological substances; Z82.49 Family history of ischemic heart disease and other diseases of the circulatory system; Z90.49 Acquired absence of other specified parts of digestive tract; Z79.84 Long term (current) use of oral hypoglycemic drugs; Z79.899 Other long term (current) drug therapy ==

== ENCOUNTER 2023-06-03 04:35 | Emergency (ER) | payer OTHER ==
[~2023-06-03] VITALS: Ht 162.6 cm; Wt 117.9 kg
[2023-06-03 04:46] VITALS: BP 158/117
[2023-06-03] MEDS ORDERED: LORazepam 1 MG TAB PO ONE (04:55)
[2023-06-03 04:56] LABS: BASO % 0.3 % (0.0-1.0); EOS # 0.1 10*3/uL (0.0-0.4); EOS % 0.6 % (1.0-4.0); HEMATOCRIT 40.9 % (37.0-47.0); LYMPH % 23.4 % (27.0-41.0); MEAN CORPUSCULAR HGB 27.5 pg (27.0-31.0); MEAN CORPUSCULAR HGB CONC 33.5 g/dl (33.0-37.0); MEAN PLATELET VOLUME 9.7 fl (9.6-12.3); MONO # 0.6 10*3/uL (0.1-1.0); MONO % 4.5 % (3.0-9.0); PLATELET COUNT AUTOMATED 389 10*3/uL (130-400); RED BLOOD COUNT 4.99 10*6/uL (4.10-5.10); RED CELL DISTRI WIDTH 13.3 % (0-14.5); WHITE BLOOD COUNT 12.7 10*3/uL (4.8-10.8)
[2023-06-03 05:16] LABS: ALKALINE PHOSPHATASE 78 U/L (46-116); BUN 10 mg/dl (9-23); CHLORIDE 103 mmol/L (98-107); POTASSIUM 3.4 mmol/L (3.4-5.1); SGPT/ALT 19 U/L (5-49); TOTAL PROTEIN 7.9 gm/dL (6.0-8.0)
[2023-06-03] MEDS ORDERED: SODIUM CHLORIDE 0.9% 1,000 ML IV ONE (05:50)
[2023-06-03] MEDS ORDERED: INSULIN REGULAR, HUMAN 1 UNIT/0.01 ML IV ONE (05:50)
[2023-06-03] MEDS ORDERED: ACETAMINOPHEN 325 MG TAB PO ONE (08:40)
== END 2023-06-03 08:48 | disposition home or self-care (01) ==
LOC: ED 04:35
PROVIDERS: Internal Medicine
DX: F41.9 Anxiety disorder, unspecified (principal); Z20.822 Contact with and (suspected) exposure to COVID-19; D72.829 Elevated white blood cell count, unspecified; E11.65 Type 2 diabetes mellitus with hyperglycemia; R00.2 Palpitations; R06.02 Shortness of breath; I10 Essential (primary) hypertension; F17.210 Nicotine dependence, cigarettes, uncomplicated; Z88.8 Allergy status to other drugs, medicaments and biological substances; Z90.49 Acquired absence of other specified parts of digestive tract; Z98.890 Other specified postprocedural states